=== PATIENT | male | born 1980 | race Two or more races ===

== ENCOUNTER 2016-11-02 11:36 | Emergency (ER) | payer OTHER ==
[~2016-11-02] VITALS: Ht 172.7 cm; Wt 79.0 kg
[2016-11-02 11:41] VITALS: BP 142/86
[2016-11-02] MEDS ORDERED: LIDOCAINE 1%, 20ML SQ ONE (12:00)
[2016-11-02] MEDS ORDERED: DIPH,PERTUSS(ACELL),TET VAC/PF 0.5 ML IM-VACC ONE ×2 (12:00→12:11)
[2016-11-02] MEDS ORDERED: LIDOCAINE 1%, 20ML ONE (12:11)
== END 2016-11-02 12:42 | disposition home or self-care (01) ==
LOC: ED 12:36
DX: S61.411A Laceration without foreign body of right hand, initial encounter (principal); W45.8XXA Other foreign body or object entering through skin, initial encounter; Y93.89 Activity, other specified; Y92.89 Other specified places as the place of occurrence of the external cause; Y99.8 Other external cause status
CPT/HCPCS: 12041; 90471; 90715

== ENCOUNTER 2016-11-12 14:41 | Emergency (ER) | payer OTHER ==
[~2016-11-12] VITALS: Ht 172.7 cm; Wt 80.6 kg
[2016-11-12 14:46] VITALS: BP 154/98
== END 2016-11-12 15:21 | disposition home or self-care (01) ==
LOC: ED 15:05
DX: S61.011D Laceration without foreign body of right thumb without damage to nail, subsequent encounter (principal); X58.XXXD Exposure to other specified factors, subsequent encounter; Y92.89 Other specified places as the place of occurrence of the external cause; Y99.8 Other external cause status
CPT/HCPCS: 99281